=== PATIENT | male | born 1995 | race Caucasian/White ===

== ENCOUNTER 2024-03-11 11:49 | Inpatient (IN) | payer OTHER ==
[~2024-03-11] VITALS: Ht 177.8 cm; Wt 70.8 kg
[2024-03-11 12:15] VITALS: TEMP 98.5
[2024-03-11] MEDS: Vancomycin IV 1 GM in SODIUM CHLORIDE 0.9% 250ML 250 ML IV ONE (14:05)
[2024-03-11 14:22] LABS: BASOPHILS % 0.3 % (0.0-1.0); EOSINOPHILS # (AUTO) 0.1 (0.0-0.4); EOSINOPHILS % 0.5 % (0.0-6.0); HEMATOCRIT 45.6 % (38.2-49.6); HEMOGLOBIN 15.7 g/dL (14.0-18.0); LYMPHOCYTES # (AUTO) 2.4 (1.0-3.2); LYMPHOCYTES % 18.1 % (18.0-39.1); MEAN CORPUSCULAR HEMOGLOBIN 31.2 pg (28-32); MEAN CORPUSCULAR HGB CONC 34.4 g/dL (31-35); MEAN CORPUSCULAR VOLUME 90.7 fL (81-99); MONOCYTES % 7.4 % (4.4-11.3); NEUTROPHILS # (AUTO) 9.9 (2.1-6.9); NEUTROPHILS % 73.3 % (38.7-80.0); PLATELET COUNT 223 x10e3/uL (140-360); RED BLOOD COUNT 5.03 x10e6/uL (4.3-5.7); RED CELL DISTRIBUTION WIDTH 12.5 % (11.7-14.4)
[2024-03-11] MEDS: Morphine 4mg INJECTION 4 MG/ML INJ IV ONE ×2 (14:28→17:10)
[2024-03-11 14:42] LABS: ANION GAP 15.2 mmol/L (8-16); CALCIUM 10.3 mg/dL (8.4-10.2); CREATININE, SERUM 1.02 mg/dL (0.72-1.25); POTASSIUM 4.2 mmol/L (3.5-5.1)
[2024-03-11] MEDS ORDERED: SODIUM CHLORIDE FLUSH 10 ML SYR INJ PRN (16:15)
[2024-03-11 16:40] VITALS: PULSE 84; RESP 16
[2024-03-11 20:48] VITALS: BP 142/88; PULSE 67; RESP 22; TEMP 98.4; O2SAT 98
[2024-03-11] MEDS: Morphine 4mg INJECTION 4 MG/ML INJ IV PRN (21:00)
[2024-03-11] MEDS: ONDANSETRON HCL INJ 2MG/ML 2ML 2 MG/ML VIAL IV PRN (21:01)
[2024-03-11 21:58] VITALS: BP 142/88; PULSE 67; RESP 22; TEMP 98.4; O2SAT 98
[2024-03-11 22:22] VITALS: BP 142/88; PULSE 67; RESP 22; TEMP 98.4; O2SAT 98
[2024-03-11] MEDS: Vancomycin IV 500 MG in SODIUM CHLORIDE 0.9% 100 ML IV STA (22:53)
[2024-03-11] MEDS: SODIUM CHLORIDE 0.9% 100 ML ONE (22:54)
[2024-03-12] VITALS (8 sets, daily range): BP systolic 122–146; BP diastolic 73–87; PULSE 57–88; RESP 18–21; TEMP 98–98.5; O2SAT 97–100
[2024-03-12] MEDS: HYDROCODONE/APAP 5MG-325MG TAB PO PRN (00:21)
[2024-03-12] MEDS: SODIUM CHLORIDE 0.9% 250ML 250 ML ONE (12:32)
[2024-03-12] MEDS: VANCOMYCIN 1.25GM/250ML PREMIX 250 ML IV SCH (15:02)
[2024-03-13] VITALS (7 sets, daily range): BP systolic 123–143; BP diastolic 68–80; PULSE 55–85; RESP 16–20; TEMP 98.2–98.6; O2SAT 98–100
[2024-03-13] MEDS ORDERED: ONDANSETRON HCL 4 MG ORAL DISINTEGRATING TAB PO PRN (10:15)
[2024-03-13] MEDS ORDERED: GADOBENATE DIMEGLUMINE 1 ML IV ONE (14:53)
[2024-03-14] VITALS (7 sets, daily range): BP systolic 121–140; BP diastolic 70–95; PULSE 59–68; RESP 17–19; TEMP 97.7–98.4; O2SAT 97–100
[2024-03-15] VITALS (8 sets, daily range): BP systolic 112–149; BP diastolic 61–86; PULSE 43–78; RESP 16–19; TEMP 97.6–98.4; O2SAT 97–100
[2024-03-15] MEDS ORDERED: Vancomycin IV 1 GM VIAL ONE ×2 (07:40→07:59)
[2024-03-15] MEDS ORDERED: BUPIVACAINE HCL 0.5% INJ 30 ML VIAL INJ ONE (08:21)
[2024-03-15] MEDS ORDERED: LIDOCAINE HCL 2% LOCAL INJ 5 ML SDV VIAL INJ ONE (12:51)
[2024-03-15] MEDS ORDERED: ONDANSETRON HCL INJ 2MG/ML 2ML 2 MG/ML VIAL ONE (12:51)
[2024-03-15] MEDS ORDERED: SUCCINYLCHOLINE CHLORIDE 20 MG/ML 10ML VIAL ONE (12:51)
[2024-03-15] MEDS ORDERED: DEXAMETHASONE SOD PHOS INJ 4 MG/ML SDV ONE (12:51)
[2024-03-15] MEDS ORDERED: SEVOFLURANE INHAL SOLN 250 ML PEN BTL ONE (12:51)
[2024-03-15] MEDS ORDERED: METOCLOPRAMIDE HCL 10 MG/2ML VIAL ONE (12:51)
[2024-03-15] MEDS ORDERED: KETOROLAC TROMETHAMINE 30 MG/ML VIAL ONE (12:51)
[2024-03-15] MEDS ORDERED: PROPOFOL IV EMULSION 10 MG/ML 20 ML VIAL ONE (12:51)
[2024-03-15] MEDS ORDERED: Morphine 10mg syringe 10 MG/ML INJ ONE (15:13)
[2024-03-15] MEDS ORDERED: FENTANYL CITRATE/PF 100MCG/2 ML INJ ONE (15:13)
[2024-03-16] VITALS (9 sets, daily range): BP systolic 113–132; BP diastolic 58–74; PULSE 53–70; RESP 16–18; TEMP 97.6–98.1; O2SAT 96–100
[2024-03-17 04:00] VITALS: BP 123/75; PULSE 55; RESP 18; TEMP 97.6; O2SAT 98
[2024-03-17 08:54] VITALS: BP 123/63; PULSE 70; RESP 17; TEMP 98.2; O2SAT 98
[2024-03-17 09:00] VITALS: BP 123/63; PULSE 70; RESP 17; TEMP 98.2; O2SAT 98
[2024-03-17] MEDS: TRAMADOL HCL 50 MG TAB PO ONE (12:12)
[2024-03-17 13:15] VITALS: BP 128/66; PULSE 59; RESP 17; TEMP 98.1; O2SAT 99
[2024-03-17 13:26] LABS: BASOPHILS # (AUTO) 0.1 (0.0-0.1); BASOPHILS % 0.8 % (0.0-1.0); EOSINOPHILS # (AUTO) 0.2 (0.0-0.4); LYMPHOCYTES # (AUTO) 3.5 (1.0-3.2); LYMPHOCYTES % 35.8 % (18.0-39.1); MEAN CORPUSCULAR HEMOGLOBIN 30.5 pg (28-32); MEAN CORPUSCULAR HGB CONC 34.1 g/dL (31-35); MEAN CORPUSCULAR VOLUME 89.6 fL (81-99); MONOCYTES # (AUTO) 0.9 (0.2-0.8); MONOCYTES % 8.8 % (4.4-11.3); NEUTROPHILS # (AUTO) 5.1 (2.1-6.9); NEUTROPHILS % 52.2 % (38.7-80.0); PLATELET COUNT 284 x10e3/uL (140-360); RED BLOOD COUNT 4.91 x10e6/uL (4.3-5.7); RED CELL DISTRIBUTION WIDTH 12.1 % (11.7-14.4)
[2024-03-17 13:48] LABS: ALBUMIN 4.1 g/dL (3.5-5.0); ALBUMIN/GLOBULIN RATIO 0.9 (0.8-2.0); ANION GAP 15.2 mmol/L (8-16); BILIRUBIN,TOTAL 0.2 mg/dL (0.2-1.2); CREATININE, SERUM 1.04 mg/dL (0.72-1.25); MAGNESIUM 1.8 MG/DL (1.3-2.1); PHOSPHORUS 4.4 MG/DL (2.3-4.7); POTASSIUM 4.2 mmol/L (3.5-5.1); TOTAL PROTEIN 8.6 g/dL (6.5-8.1)
[2024-03-17 14:09] LABS: FREE T4 (FREE THYROXINE) 1.2 ng/dL (0.8-1.8); THYROID STIMULATING HORMONE 1.187 uIU/mL (0.350-4.940)
[2024-03-17] MEDS ORDERED: ONDANSETRON ODT4 MG PO (14:22)
[2024-03-17] MEDS ORDERED: ZYVOX600 MG PO (14:22)
[2024-03-17] MEDS ORDERED: TYLENOL325 M2 PO (14:48)
[2024-03-17] MEDS ORDERED: LINEZOLID 600 MG TAB PO SCH (17:00)
== END 2024-03-17 15:23 | disposition home or self-care (01) | DRG 580 ==
LOC: ER 13:47 → ERHOLD 16:09 → MED/SURG3 20:44 → OBSVTOIN 03-12 15:46
PROVIDERS: ADMIT Internal Medicine; ATTEND Internal Medicine
PROC: 0JBJ0ZZ Excision of Right Hand Subcutaneous Tissue and Fascia, Open Approach (ICD-10-PCS; principal; 2024-03-15 07:57)
DX: L03.113 Cellulitis of right upper limb (principal); L02.511 Cutaneous abscess of right hand; B95.62 Methicillin resistant Staphylococcus aureus infection as the cause of diseases classified elsewhere; F17.210 Nicotine dependence, cigarettes, uncomplicated; Z11.52 Encounter for screening for COVID-19
CPT/HCPCS: 36415; 80048; 80053; 80202; 83735; 84100; 84439; 84443; 85025; 86140; 87040; 87071; 87075; 87186; 87205; 99252; 99284; G0378; J0330; J0696; J1100; J1885; J2001; J2270; J2405; J2765; J3370; J7050; U0002